=== PATIENT | female | born 1960 | race Caucasian/White ===

== ENCOUNTER 2017-11-30 06:09 | Day surgery (SDC) | payer OTHER ==
[2017-11-30] MEDS ORDERED: CEFAZOLIN 2 GM/50 ML (PMX) 50 ML IVPB (07:00)
[2017-11-30] MEDS ORDERED: LACTATED RINGER'S 1,000 ML IV* (07:00)
[2017-11-30] MEDS ORDERED: MIDAZOLAM 1 MG/ML 2 ML INJ ×2 (07:37→07:41)
[2017-11-30] MEDS ORDERED: PROPOFOL 20 ML (07:37)
[2017-11-30] MEDS ORDERED: POLYMYXIN/BACITRACIN 1L IRRIG (07:39)
[2017-11-30] MEDS ORDERED: FENTAnyl 50 MCG/ML VIAL (07:40)
[2017-11-30] MEDS ORDERED: CEFAZOLIN 1 GM/50 ML (PMX) 50 ML IVPB ×2 (07:43→14:00)
[2017-11-30] MEDS ORDERED: LIDOCAINE 1% (MDV) 20 ML INJ (08:37)
[2017-11-30] MEDS ORDERED: SOD CHLORIDE 0.9% 1,000 ML (08:37)
[2017-11-30] MEDS ORDERED: HYDROCODONE/APAP (5/325) TAB PO (09:00)
[2017-11-30] MEDS ORDERED: CITALOPRAM 20 MG TAB PO (09:00)
[2017-11-30] MEDS ORDERED: hydrALAzine 20 MG INJ IV (09:30)
[2017-11-30] MEDS ORDERED: OXYCODONE/ACETAMINOPHEN (5/325) TAB PO ×2 (09:30)
[2017-11-30] MEDS ORDERED: MEPERIDINE 25 MG INJ IV (09:30)
[2017-11-30] MEDS ORDERED: FENTAnyl 50 MCG/ML VIAL IV ×2 (09:30)
[2017-11-30] MEDS ORDERED: LABETALOL HCL 20MG INJ IV (09:30)
[2017-11-30] MEDS ORDERED: EPHEDrine SULFATE 50 MG/5 ML SYG IV (09:30)
[2017-11-30] MEDS ORDERED: ONDANSETRON 4 MG INJ IV (09:30)
[2017-11-30] MEDS ORDERED: DIPHENHYDRAMINE 50 MG INJ IV (09:30)
== END 2017-11-30 10:41 | disposition home or self-care (01) ==
LOC: SDS 06:09 → REC 09:09
DX: I44.2 Atrioventricular block, complete (principal); Z45.010 Encounter for checking and testing of cardiac pacemaker pulse generator [battery]
CPT/HCPCS: 33227; 33228